=== PATIENT | male | born 1940 | race Caucasian/White ===

== ENCOUNTER 2016-06-12 10:41 | Emergency (ER) | payer OTHER, MEDICARE ==
[~2016-06-12] VITALS: Ht 182.9 cm; Wt 87.3 kg
[~2016-06-12 10:41] MED LIST: BETAPACE,SORINE80 M1 PO; CARDIZEM60 MG PO; CELLCEPT500 MG PO; DIGOX125 MCG PO; MESTINON60 MG PO; NASONEX17 GM NS; PREDNISONE20 M1 PO; PREDNISONE5 MG PO; PREVACID30 MG PO; Pradaxa PO; SERTRALINE HCL50 MG PO; ZETIA10 MG PO
[2016-06-12 12:08] LABS: ADD MIUA? YES; BILIRUBIN SMALL; BLOOD LARGE; COLOR BLOODY ((YELLOW)); GLUCOSE (STRIP) NEGATIVE; KETONES TRACE; LEUKOCYTES TRACE; NITRITE NEGATIVE; PROTEIN (STRIP) >=2000; UROBILINOGEN 0.2 MG/DL (0.2-1.0)
[2016-06-12 12:15] LABS: RED BLOOD CELLS TNTC /HPF (0-5)
[2016-06-12 12:46] VITALS: BP 133/84
== END 2016-06-12 12:45 | disposition home or self-care (01) ==
LOC: EME 10:41
PROVIDERS: Emergency Medicine
DX: R31.9 Hematuria, unspecified (principal); Z85.46 Personal history of malignant neoplasm of prostate; F17.200 Nicotine dependence, unspecified, uncomplicated; Z88.2 Allergy status to sulfonamides; Z88.8 Allergy status to other drugs, medicaments and biological substances; Z79.01 Long term (current) use of anticoagulants; E78.5 Hyperlipidemia, unspecified; G70.00 Myasthenia gravis without (acute) exacerbation
CPT/HCPCS: 81003; 99281; 99283

== ENCOUNTER 2016-07-18 10:30 | Inpatient (IN) | payer OTHER, MEDICARE ==
[~2016-07-18] VITALS: Ht 182.9 cm; Wt 94.2 kg
[2016-07-18 10:52] LABS: BASOPHIL COUNT 0.1 K/uL (0-0.1); EOSINOPHIL COUNT 0.3 K/uL (0-0.3); IMMATURE GRANULOCYTE (%) 0.6 % (0.0-0.7); IMMATURE GRANULOCYTE COUNT 0.1 K/uL; INSTRUMENT ABS NEUTROPHIL CT 6.8 K/uL; LYMPHOCYTE COUNT 0.6 K/uL (1.0-2.8); MCH 30.3 PG (29.0-34.0); MCHC 33.1 G/DL (30.0-36.0); MCV 91.7 FL (86-99); MONOCYTE (%) 7.5 % (3-12); MONOCYTE COUNT 0.6 K/uL (0-0.8); NEUTROPHIL (%) 79.5 % (45-76); NEUTROPHIL COUNT 6.8 K/uL (1.8-6.4); PLATELET COUNT 262 K/uL (156-360); RBC DIS.WIDTH-CV 13.8 % (11.8-14.6); RBC DIS.WIDTH-SD 46.2 % (39-53); RED BLOOD COUNT 4.58 M/uL (4.00-5.50)
[2016-07-18 10:53] LABS: WHITE BLOOD COUNT 8.5 K/uL (4.1-10.2)
[2016-07-18 11:01] LABS: AMYLASE 37 IU/L (1-118); CHLORIDE 105 mEq/L (99-109); POTASSIUM 4.1 mEq/L (3.7-5.4); SODIUM 140 mEq/L (136-147)
[2016-07-18 11:02] LABS: GLUCOSE 96 mg/dL (70-99)
[2016-07-18 11:04] LABS: ANION GAP 10 MEQ/L (2-14)
[2016-07-18 11:05] LABS: SERUM ETHYL ALCOHOL < 10 mg/dL
[2016-07-18 11:06] LABS: GFR ESTIMATE (CALCULATED) > 59 mL/min/
[2016-07-18 11:07] LABS: UREA NITROGEN (BUN) 15 mg/dL (9-23)
[2016-07-18 11:09] LABS: LIPASE 15 U/L (1.0-51.0)
[2016-07-18 11:44] LABS: ADD MIUA? YES; BILIRUBIN NEGATIVE; BLOOD LARGE; COLOR YELLOW ((YELLOW)); GLUCOSE (STRIP) NEGATIVE; KETONES NEGATIVE; LEUKOCYTES NEGATIVE; NITRITE NEGATIVE; PROTEIN (STRIP) NEGATIVE; SPECIFIC GRAVITY 1.018 (1.000-1.030); UROBILINOGEN 0.2 MG/DL (0.2-1.0)
[2016-07-18 11:52] LABS: AMPHETAMINE NEGATIVE (500 ng/mL); BENZODIAZEPINES NEGATIVE (150 ng/mL); COCAINE NEGATIVE (150 ng/mL); METHAMPHETAMINE NEGATIVE (500 ng/mL); OPIATES (MORPHINE) NEGATIVE (100 ng/mL); PHENCYCLIDINE NEGATIVE (25 ng/mL); THC CANNABINOIDS NEGATIVE (50 ng/mL)
[2016-07-18 11:53] LABS: BARBITURATES NEGATIVE (200 ng/mL); INTERNAL CONTROLS VALID? YES; METHADONE NEGATIVE (200 ng/mL); OXYCODONE NEGATIVE (100 ng/mL); PROPOXYPHENE NEGATIVE (300 ng/mL); TRICYCLIC ANTIDEPRESSANTS NEGATIVE (300 ng/mL)
[2016-07-18] MEDS ORDERED: PRADAXA150 MG PO (11:58)
[2016-07-18] MEDS ORDERED: SOTALOL80 MG PO (11:59)
[2016-07-18 12:03] LABS: BACTERIA NONE SEEN /HPF; EPITHELIAL CELLS RARE /HPF; MUCUS NONE SEEN /LPF; RED BLOOD CELLS TNTC /HPF (0-5); UCUL ADDED? NO; WHITE BLOOD CELLS 0-5 /HPF (0-5)
[2016-07-18] MEDS ORDERED: VITAMIN D2000 UNIT PO (12:04)
[2016-07-18] MEDS ORDERED: B COMPLETE1 EACH PO (12:04)
[2016-07-18] MEDS ORDERED: VENLAFAXINE HC150 M1 PO (12:04)
[2016-07-18 19:04] VITALS: BP 136/72
[2016-07-18 19:36] VITALS: BP 142/90
[2016-07-18 23:02] VITALS: BP 125/86
[2016-07-19 03:12] VITALS: BP 109/63
[2016-07-19 05:36] LABS: HEMATOCRIT 38.7 % (38.0-50.0); MCH 29.6 PG (29.0-34.0); MCHC 31.8 G/DL (30.0-36.0); MCV 93.3 FL (86-99); MEAN PLAT.VOLUME 10.2 uM^3 (9.0-12.4); PLATELET COUNT 249 K/uL (156-360); RBC DIS.WIDTH-CV 13.9 % (11.8-14.6); RBC DIS.WIDTH-SD 47.5 % (39-53); RED BLOOD COUNT 4.15 M/uL (4.00-5.50); WHITE BLOOD COUNT 6.8 K/uL (4.1-10.2)
[2016-07-19 06:00] LABS: ANION GAP 6 MEQ/L (2-14); CHLORIDE 102 MEQ/L (99-109); GFR ESTIMATE (CALCULATED) > 59 mL/min/; GLUCOSE 98 mg/dL (70-99); SAMPLE HEMOLYSIS CHECK 0; SAMPLE ICTERIC CHECK 0; SAMPLE LIPEMIA CHECK 0; SODIUM 136 MEQ/L (136-147); UREA NITROGEN (BUN) 13 mg/dL (9-23)
[2016-07-19 08:25] VITALS: BP 105/66
[2016-07-19 13:25] VITALS: BP 108/62
== END 2016-07-19 13:43 | disposition short-term general hospital (02) | DRG 560 ==
LOC: TRA 10:30 → EDOF 13:20 → 3EAST 17:36
PROVIDERS: Emergency Medicine; Internal Medicine
PROC: 0SSBXZZ Reposition Left Hip Joint, External Approach (ICD-10-PCS; principal; 2016-07-18)
PROC: 0SSBXZZ Reposition Left Hip Joint, External Approach (ICD-10-PCS; 2016-07-18)
DX: T84.021A Dislocation of internal left hip prosthesis, initial encounter (principal); S22.071A Stable burst fracture of T9-T10 vertebra, initial encounter for closed fracture; S22.079A Unspecified fracture of T9-T10 vertebra, initial encounter for closed fracture; S01.01XA Laceration without foreign body of scalp, initial encounter; W10.9XXA Fall (on) (from) unspecified stairs and steps, initial encounter; Y92.008 Other place in unspecified non-institutional (private) residence as the place of occurrence of the external cause; I48.91 Unspecified atrial fibrillation; G70.00 Myasthenia gravis without (acute) exacerbation; Z96.642 Presence of left artificial hip joint; M47.892 Other spondylosis, cervical region; E78.5 Hyperlipidemia, unspecified; F17.290 Nicotine dependence, other tobacco product, uncomplicated; F17.211 Nicotine dependence, cigarettes, in remission; M47.896 Other spondylosis, lumbar region; K21.9 Gastro-esophageal reflux disease without esophagitis; D32.0 Benign neoplasm of cerebral meninges; M45.9 Ankylosing spondylitis of unspecified sites in spine; Z85.46 Personal history of malignant neoplasm of prostate; Z79.02 Long term (current) use of antithrombotics/antiplatelets; Z88.2 Allergy status to sulfonamides
CPT/HCPCS: 70450; 71260; 72125; 72129; 72132; 72170; 73501; 74177; 76000; 80048; 81003; 82040; 82150; 83690; 85025; 85027; 86900; 86901; 93005; 94799; 99281; 99285; G0480; J0330; J1170; J2405; J3010; J7030; J7120; J7512; J7517

== ENCOUNTER 2017-04-05 00:04 | Inpatient (IN) | payer OTHER, MEDICARE ==
[~2017-04-05] VITALS: Ht 182.9 cm; Wt 89.5 kg
[~2017-04-05 00:04] MED LIST changes: +B COMPLETE1 EACH PO; +PRADAXA150 MG PO; +SOTALOL80 MG PO; +VENLAFAXINE HC150 M1 PO; +VITAMIN D2000 UNIT PO
[2017-04-05 00:35] LABS: HEMATOCRIT 42.2 % (38.0-50.0); HEMOGLOBIN 13.2 G/DL (12.5-16.6); MCH 26.1 PG (29.0-34.0); MCHC 31.3 G/DL (30.0-36.0); MCV 83.6 FL (86-99); PLATELET COUNT 209 K/uL (156-360); RBC DIS.WIDTH-CV 21.6 % (11.8-14.6); RBC DIS.WIDTH-SD 64.3 % (39-53); RED BLOOD COUNT 5.05 M/uL (4.00-5.50); WHITE BLOOD COUNT 12.9 K/uL (4.1-10.2)
[2017-04-05 00:36] LABS: BASOPHIL (%) 0.4 % (0-1); BASOPHIL COUNT 0.1 K/uL (0-0.1); EOSINOPHIL (%) 2.2 % (0-5); EOSINOPHIL COUNT 0.3 K/uL (0-0.3); IMMATURE GRANULOCYTE (%) 0.5 % (0.0-0.7); LYMPHOCYTE (%) 2.3 % (15-42); LYMPHOCYTE COUNT 0.3 K/uL (1.0-2.8); MONOCYTE (%) 5.1 % (3-12); MONOCYTE COUNT 0.7 K/uL (0-0.8); NEUTROPHIL (%) 89.5 % (45-76); NEUTROPHIL COUNT 11.5 K/uL (1.8-6.4)
[2017-04-05 00:46] LABS: CHLORIDE 101 mEq/L (99-109); POTASSIUM 3.3 mEq/L (3.7-5.4); SODIUM 136 mEq/L (136-147)
[2017-04-05 00:48] LABS: GLUCOSE 155 mg/dL (70-99); TOTAL PROTEIN 6.3 g/dL (6.4-8.3)
[2017-04-05 00:50] LABS: TOTAL BILIRUBIN 1.8 mg/dL (0.0-1.0)
[2017-04-05 00:51] LABS: ALKALINE PHOSPHATASE 75 IU/L (3-129)
[2017-04-05 00:52] LABS: CREATININE 0.8 mg/dL (0.6-1.3); GFR ESTIMATE (CALCULATED) > 59 mL/min/ (58.99-99999)
[2017-04-05 00:53] LABS: AST (GOT) 26 IU/L (2-34); UREA NITROGEN (BUN) 12 mg/dL (9-23)
[2017-04-05 00:54] LABS: ALT (GPT) 16 IU/L (3-49)
[2017-04-05 00:55] LABS: TROP-I INTERPRETATION NEGATIVE; TROPONIN-I 0.03 ng/mL (0.0-0.30)
[2017-04-05 01:06] LABS: BASE EXCESS -1.3 mEq/L (-3 to +3); BICARBONATE 24.3 mEq/L (22-26); CARBOXY HGB 2.4 % (0-5); COMMENTS - BLOOD GASES A+C+; METHEMOGLOBIN 0.9 % (0-1.5); PCO2 43 mm Hg (35-45); PO2 62 mm Hg (80-100); SITE RR; pH 7.36 (7.35-7.45)
[2017-04-05 01:07] LABS: FI02 21 %; TOTAL RESP RATE 35 resp/min
[2017-04-05] MEDS ORDERED: ABILIFY2 MG PO (09:05)
[2017-04-05] MEDS ORDERED: GABAPENTIN300 MG PO (17:51)
[2017-04-05] MEDS ORDERED: TYLENOL EXTRA500 MG PO (17:53)
[2017-04-06 06:26] LABS: BASOPHIL (%) 0.1 % (0-1); EOSINOPHIL (%) 0 % (0-5); HEMATOCRIT 40.3 % (38.0-50.0); HEMOGLOBIN 12.7 G/DL (12.5-16.6); IMMATURE GRANULOCYTE (%) 0.6 % (0.0-0.7); LYMPHOCYTE (%) 2.6 % (15-42); LYMPHOCYTE COUNT 0.3 K/uL (1.0-2.8); MCH 26.2 PG (29.0-34.0); MCHC 31.5 G/DL (30.0-36.0); MCV 83.3 FL (86-99); MONOCYTE (%) 2.1 % (3-12); MONOCYTE COUNT 0.3 K/uL (0-0.8); NEUTROPHIL (%) 94.6 % (45-76); NEUTROPHIL COUNT 11.5 K/uL (1.8-6.4); PLATELET COUNT 238 K/uL (156-360); RBC DIS.WIDTH-CV 22.2 % (11.8-14.6); RBC DIS.WIDTH-SD 65.1 % (39-53); RED BLOOD COUNT 4.84 M/uL (4.00-5.50); WHITE BLOOD COUNT 12.1 K/uL (4.1-10.2)
[2017-04-06 06:52] LABS: ALBUMIN 3.9 G/DL (3.2-4.8); ALKALINE PHOSPHATASE 72 IU/L (3-129); ALT (GPT) 17 IU/L (3-49); AST (GOT) 24 IU/L (2-34); CHLORIDE 104 MEQ/L (99-109); CREATININE 0.8 MG/DL (0.6-1.3); GFR ESTIMATE (CALCULATED) > 59 mL/min/ (58.99-99999); GLUCOSE 219 mg/dL (70-99); SODIUM 140 MEQ/L (136-147); SODIUM 141 MEQ/L (136-147); TOTAL BILIRUBIN 0.8 MG/DL (0.0-1.0); TOTAL PROTEIN 6.1 G/DL (6.4-8.3)
[2017-04-06 06:53] LABS: POTASSIUM 4.1 MEQ/L (3.7-5.4); POTASSIUM 4.2 MEQ/L (3.7-5.4); UREA NITROGEN (BUN) 23 mg/dL (9-23)
[2017-04-06 07:46] VITALS: BP 138/80
[2017-04-06 16:00] VITALS: BP 160/94
[2017-04-07 00:08] VITALS: BP 110/74
[2017-04-07 04:00] VITALS: BP 130/76
[2017-04-07 06:55] LABS: BASOPHIL (%) 0.1 % (0-1); EOSINOPHIL (%) 0.1 % (0-5); HEMATOCRIT 39.6 % (38.0-50.0); HEMOGLOBIN 12.8 G/DL (12.5-16.6); IMMATURE GRANULOCYTE (%) 0.6 % (0.0-0.7); LYMPHOCYTE (%) 2.1 % (15-42); LYMPHOCYTE COUNT 0.3 K/uL (1.0-2.8); MCH 26.9 PG (29.0-34.0); MCHC 32.3 G/DL (30.0-36.0); MCV 83.4 FL (86-99); MONOCYTE (%) 3.5 % (3-12); MONOCYTE COUNT 0.4 K/uL (0-0.8); NEUTROPHIL (%) 93.6 % (45-76); NEUTROPHIL COUNT 11.8 K/uL (1.8-6.4); PLATELET COUNT 283 K/uL (156-360); RBC DIS.WIDTH-SD 64.9 % (39-53); RED BLOOD COUNT 4.75 M/uL (4.00-5.50); WHITE BLOOD COUNT 12.6 K/uL (4.1-10.2)
[2017-04-07 07:11] LABS: ALBUMIN 3.6 G/DL (3.2-4.8); CHLORIDE 103 MEQ/L (99-109); POTASSIUM 4.2 MEQ/L (3.7-5.4); SODIUM 138 MEQ/L (136-147); TOTAL BILIRUBIN 0.7 MG/DL (0.0-1.0)
[2017-04-07 07:17] LABS: ALKALINE PHOSPHATASE 66 IU/L (3-129); ALT (GPT) 20 IU/L (3-49); AST (GOT) 24 IU/L (2-34); CREATININE 0.7 MG/DL (0.6-1.3); GFR ESTIMATE (CALCULATED) > 59 mL/min/ (58.99-99999); GLUCOSE 127 mg/dL (70-99); TOTAL PROTEIN 5.6 G/DL (6.4-8.3); UREA NITROGEN (BUN) 25 mg/dL (9-23)
[2017-04-07 07:51] VITALS: BP 171/84
[2017-04-07] MEDS ORDERED: SPIRIVA RESPIMAT4 GM IH (09:00)
[2017-04-07] MEDS ORDERED: FLOVENT 11120 INHALA IH (09:00)
[2017-04-07] MEDS ORDERED: OSELTAMIVIR PHO75 MG PO (09:02)
[2017-04-07] MEDS ORDERED: CARDIZEM60 MG PO (09:02)
[2017-04-07] MEDS ORDERED: PREDNISONE5 MG PO (09:41)
== END 2017-04-07 13:02 | disposition home health service (06) | DRG 190 ==
LOC: EME → EDBD 00:04 → 5EAST 02:04 → EDOF 02:04 → ENRESERV 02:06 → 5EAST 17:15 → ENPENDDIS 04-07 → 5EAST 04-07 13:02
PROVIDERS: Emergency Medicine; Hospitalist; Internal Medicine
DX: J44.1 Chronic obstructive pulmonary disease with (acute) exacerbation (principal); J96.01 Acute respiratory failure with hypoxia; J20.9 Acute bronchitis, unspecified; J44.0 Chronic obstructive pulmonary disease with (acute) lower respiratory infection; J10.1 Influenza due to other identified influenza virus with other respiratory manifestations; I48.1 Persistent atrial fibrillation; G70.00 Myasthenia gravis without (acute) exacerbation; R51 Headache; I10 Essential (primary) hypertension; E78.5 Hyperlipidemia, unspecified; K21.9 Gastro-esophageal reflux disease without esophagitis; F17.290 Nicotine dependence, other tobacco product, uncomplicated; M19.90 Unspecified osteoarthritis, unspecified site; F32.9 Major depressive disorder, single episode, unspecified; Z79.01 Long term (current) use of anticoagulants; Z79.52 Long term (current) use of systemic steroids; Z85.46 Personal history of malignant neoplasm of prostate; Z92.3 Personal history of irradiation; Z96.642 Presence of left artificial hip joint; Z82.49 Family history of ischemic heart disease and other diseases of the circulatory system
CPT/HCPCS: 36600; 71045; 71250; 80048; 80053; 82803; 83605; 83880; 84484; 85025; 85027; 87040; 87070; 87106; 87205; 87502; 93005; 93306; 94640; 94640 76; 94760; 94799; 99202; 99281; 99285; J0456; J0696; J2920; J2930; J7512; J7517; J7644

== ENCOUNTER 2017-04-13 04:57 | Inpatient (IN) | payer OTHER, MEDICARE ==
[~2017-04-13] VITALS: Ht 182.9 cm; Wt 82.5 kg
[2017-04-13] VITALS (23 sets, daily range): BP systolic 90–117; BP diastolic 57–78
[~2017-04-13 04:57] MED LIST changes: +ABILIFY2 MG PO; +FLOVENT 11120 INHALA IH; +GABAPENTIN300 MG PO; +OSELTAMIVIR PHO75 MG PO; +SPIRIVA RESPIMAT4 GM IH; +TYLENOL EXTRA500 MG PO
[2017-04-13 05:26] LABS: HEMATOCRIT 34.9 % (38.0-50.0); HEMOGLOBIN 11.1 G/DL (12.5-16.6); MCH 26.8 PG (29.0-34.0); MCHC 31.8 G/DL (30.0-36.0); MCV 84.3 FL (86-99); RBC DIS.WIDTH-CV 21.1 % (11.8-14.6); RBC DIS.WIDTH-SD 63.5 % (39-53); RED BLOOD COUNT 4.14 M/uL (4.00-5.50); WHITE BLOOD COUNT 14.2 K/uL (4.1-10.2)
[2017-04-13 05:38] LABS: ALBUMIN 2.8 g/dL (3.2-4.8); CHLORIDE 107 mEq/L (99-109); POTASSIUM 3.8 mEq/L (3.7-5.4); SODIUM 139 mEq/L (136-147)
[2017-04-13 05:40] LABS: GLUCOSE 154 mg/dL (70-99)
[2017-04-13 05:41] LABS: TOTAL PROTEIN 3.8 g/dL (6.4-8.3)
[2017-04-13 05:42] LABS: TOTAL BILIRUBIN 0.5 mg/dL (0.0-1.0)
[2017-04-13 05:44] LABS: ALKALINE PHOSPHATASE 46 IU/L (3-129); CREATININE 0.7 mg/dL (0.6-1.3); GFR ESTIMATE (CALCULATED) > 59 mL/min/ (58.99-99999)
[2017-04-13 05:45] LABS: UREA NITROGEN (BUN) 33 mg/dL (9-23)
[2017-04-13 05:46] LABS: AST (GOT) 14 IU/L (2-34)
[2017-04-13 05:47] LABS: ALT (GPT) 23 IU/L (3-49); LIPASE 18 U/L (1.0-51.0)
[2017-04-13 06:07] LABS: INTER. NORMALIZED RATIO 1.3
[2017-04-13 06:18] LABS: ABS NEUTROPHIL COUNT 12.6; ANISOCYTOSIS 1+; ATYPICAL LYMPHOCYTE 0.9 %; BAND NEUTROPHILS 2.6 % (0-8.0); BASOPHILS 0.9 %; EOSINOPHIL ABS CT 0.1; EOSINOPHILS 0.8 % (0-5.0); LYMPHOCYTES 6.1 % (15.0-45.0); MICROCYTOSIS 1+; MONOCYTES 1.7 % (0-9.0); MYELOCYTES 0.9 %; OVALOCYTES 1+; PLAT.SUFFICIENCY ADEQUATE; PLATELET COUNT 386 K/uL (156-360); POIKILOCYTOSIS 2+; SEG.NEUTROPHILS 86.1 % (46.0-76.0); SMUDGE CELLS 0.9; SPHEROCYTES 3+
[2017-04-13] MEDS ORDERED: PREDNISONE10 MG PO (08:58)
[2017-04-13 12:45] LABS: HEMATOCRIT 27.1 % (38.0-50.0); MCV 84.4 FL (86-99)
[2017-04-13 19:54] LABS: HEMATOCRIT 32.1 % (38.0-50.0); HEMOGLOBIN 10.7 G/DL (12.5-16.6); MCV 83.2 FL (86-99)
[2017-04-14] VITALS (24 sets, daily range): BP systolic 92–132; BP diastolic 55–82
[2017-04-14 06:18] LABS: INTER. NORMALIZED RATIO 1.1
[2017-04-14 06:21] LABS: PTT 22.5 SEC (25-37)
[2017-04-14 06:29] LABS: HEMATOCRIT 28.9 % (38.0-50.0); HEMOGLOBIN 9.5 G/DL (12.5-16.6); MCH 27.5 PG (29.0-34.0); MCHC 32.9 G/DL (30.0-36.0); MCV 83.5 FL (86-99); RBC DIS.WIDTH-CV 18.6 % (11.8-14.6); RED BLOOD COUNT 3.46 M/uL (4.00-5.50); WHITE BLOOD COUNT 11.8 K/uL (4.1-10.2)
[2017-04-14 06:46] LABS: CHLORIDE 104 MEQ/L (99-109); CREATININE 0.7 MG/DL (0.6-1.3); GFR ESTIMATE (CALCULATED) > 59 mL/min/ (58.99-99999); SODIUM 141 MEQ/L (136-147); UREA NITROGEN (BUN) 25 mg/dL (9-23)
[2017-04-14 06:51] LABS: PLAT.SUFFICIENCY ADEQUATE
[2017-04-14 06:52] LABS: PLATELET COUNT 231 K/uL (156-360)
[2017-04-14 06:56] LABS: GLUCOSE 94 mg/dL (70-99); POTASSIUM 4.8 MEQ/L (3.7-5.4)
[2017-04-14 10:02] LABS: HEMATOCRIT 27.1 % (38.0-50.0); HEMOGLOBIN 8.9 G/DL (12.5-16.6); MCV 83.6 FL (86-99)
[2017-04-14 14:55] LABS: HEMATOCRIT 27.6 % (38.0-50.0); HEMOGLOBIN 9.1 G/DL (12.5-16.6); MCV 84.1 FL (86-99)
[2017-04-14 20:54] LABS: HEMATOCRIT 32.9 % (38.0-50.0); HEMOGLOBIN 10.9 G/DL (12.5-16.6); MCV 85.2 FL (86-99)
[2017-04-15] VITALS (28 sets, daily range): BP systolic 97–139; BP diastolic 55–95
[2017-04-15 04:42] LABS: HEMATOCRIT 28.4 % (38.0-50.0); HEMOGLOBIN 9.4 G/DL (12.5-16.6); MCH 28.3 PG (29.0-34.0); MCHC 33.1 G/DL (30.0-36.0); MCV 85.5 FL (86-99); NRBC (%) 0.3 /100 WBC (0-0); PLATELET COUNT 183 K/uL (156-360); RBC DIS.WIDTH-CV 18.6 % (11.8-14.6); RBC DIS.WIDTH-SD 57.7 % (39-53); RED BLOOD COUNT 3.32 M/uL (4.00-5.50); WHITE BLOOD COUNT 6.8 K/uL (4.1-10.2)
[2017-04-15 07:05] LABS: ABS NEUTROPHIL COUNT 5.6; ANISOCYTOSIS 1+; BAND NEUTROPHILS 0.9 % (0-8.0); BASOPHILS 0.9 %; EOSINOPHIL ABS CT 0.1; EOSINOPHILS 0.9 % (0-5.0); LYMPHOCYTES 10.6 % (15.0-45.0); MICROCYTOSIS 1+; MONOCYTES 3.5 % (0-9.0); MYELOCYTES 1.8 %; NUCLEATED RBC'S 0.9; OVALOCYTES 1+; PLAT.SUFFICIENCY ADEQUATE; POIKILOCYTOSIS 1+; SEG.NEUTROPHILS 81.4 % (46.0-76.0); SMUDGE CELLS 10.6
[2017-04-16] VITALS (8 sets, daily range): BP systolic 85–115; BP diastolic 43–69
[2017-04-16 08:52] LABS: HEMATOCRIT 31.5 % (38.0-50.0); HEMOGLOBIN 10.5 G/DL (12.5-16.6); MCH 29.1 PG (29.0-34.0); MCHC 33.3 G/DL (30.0-36.0); MCV 87.3 FL (86-99); PLATELET COUNT 178 K/uL (156-360); RBC DIS.WIDTH-CV 18.5 % (11.8-14.6); RBC DIS.WIDTH-SD 57.3 % (39-53); RED BLOOD COUNT 3.61 M/uL (4.00-5.50)
== END 2017-04-16 13:26 | disposition home or self-care (01) | DRG 378 ==
LOC: EME 04:57 → EDOF 07:34 → ENRESERV 07:36 → EDOF 07:52 → ENRESERV 07:52 → EDOF 07:52 → 4WEST 07:52 → EDOF 14:46 → ENRESERV 14:48 → EDOF 14:52 → ENRESERV 15:11 → 4WEST 19:06 → CANRESERV 04-15 20:03 → ENRESERV 04-15 20:03 → 4WEST 04-16 13:26
PROVIDERS: Emergency Medicine; Internal Medicine; Internal Medicine Critical Care Medicine; Internal Medicine Gastroenterology; Surgery
DX: K57.11 Diverticulosis of small intestine without perforation or abscess with bleeding (principal); D62 Acute posthemorrhagic anemia; R79.1 Abnormal coagulation profile; T45.515A Adverse effect of anticoagulants, initial encounter; K63.5 Polyp of colon; K57.30 Diverticulosis of large intestine without perforation or abscess without bleeding; K25.9 Gastric ulcer, unspecified as acute or chronic, without hemorrhage or perforation; K31.4 Gastric diverticulum; K64.8 Other hemorrhoids; I95.9 Hypotension, unspecified; E86.1 Hypovolemia; E78.5 Hyperlipidemia, unspecified; G70.00 Myasthenia gravis without (acute) exacerbation; I48.2 Chronic atrial fibrillation; K21.9 Gastro-esophageal reflux disease without esophagitis; F32.9 Major depressive disorder, single episode, unspecified; I10 Essential (primary) hypertension; F17.290 Nicotine dependence, other tobacco product, uncomplicated; Z96.642 Presence of left artificial hip joint; Z79.01 Long term (current) use of anticoagulants; Z85.46 Personal history of malignant neoplasm of prostate; Z98.1 Arthrodesis status; Z88.2 Allergy status to sulfonamides
CPT/HCPCS: 71045; 74176; 78278; 80048; 80053; 82330; 83690; 85014; 85018; 85025; 85027; 85610; 85730; 86850; 86900; 86901; 86920; 87641; 88305; 93005; 94640; 94640 76; A9560; C9113; J1644; J1756; J7030; J7050; J7512; J7517; P9016; P9017